=== PATIENT | male | born 1995 | race African-American/Black ===

== ENCOUNTER 2017-01-06 14:38 | Emergency (ER) | payer SELFPAY ==
[~2017-01-06] VITALS: Ht 188 cm; Wt 81.0 kg
[2017-01-06 14:40] VITALS: BP 123/95; PULSE 72; RESP 12; TEMP 98.1; O2SAT 98
--- NOTE | 2017-01-06 15:24 | PD ---
HPI Chief Complaint: Pain: Acute or Chronic Time Seen by Provider: 15:23 Travel History International Travel<30 days: No Contact w/Intl Traveler<30days: No Traveled to known affect area: No History of Present Illness HPI 20-year-old male presents emergency Department with complaint of right lower rib cage pain and right hip pain 2 weeks after falling on his right side while playing football. He thought the pain would go away and it hasn't. He denies shortness of breath, hemoptysis, hematemesis, hematochezia, hematuria. Denies fever, chills, nausea, vomiting. Rib cage pain is worse with deep breathing. Right hip pain is worse with palpation. He has not taken any medications or tried any treatments to alleviate his symptoms. No known allergies. Denies significant past medical history. No other modifying factors or associated signs and symptoms. PFSH Past Medical History Medical History: Denies Significant Hx Social History Tobacco Use: No Allergies-Medications (Allergen,Severity, Reaction): Coded Allergies: No Known Allergies (Unverified , 01/06/17) Reported Meds & Prescriptions Reported Meds & Active Scripts Active Ibuprofen 800 Mg Tab 800 Mg PO Q6HR PRN Review of Systems Except as stated in HPI: all other systems reviewed are Neg Physical Exam Narrative GENERAL: Well-nourished, well-developed male patient, in no acute distress SKIN: Warm and dry. HEAD: Atraumatic. Normocephalic. EYES: Pupils equal and round. No scleral icterus. No injection or drainage. ENT: Mucosa pink and moist. Airway patent. NECK: Trachea midline. CHEST: Reproducible tenderness to the right lateral lower rib cage; without deformity or crepitance. No retractions or use of accessory muscles. CARDIOVASCULAR: Regular rate and rhythm. No murmur appreciated. RESPIRATORY: No accessory muscle use. Lungs sounds clear and equal bilaterally. GASTROINTESTINAL: Abdomen soft, non-tender, nondistended. Positive bowel sounds. No hepato-splenomegaly, or palpable masses. No guarding. MUSCULOSKELETAL: Right hip with full range of motion; no erythema, edema, ecchymosis; without tenderness on abduction; with tenderness on palpation; no obvious deformity; no leg length discrepancy. Right lower extremity is supple and non-tense with 2+ pedal pulse and sensory intact and without erythema or edema. Ambulatory at bedside with normal gait. NEUROLOGICAL: Awake and alert. Oriented 3. No obvious cranial nerve deficits. Motor grossly within normal limits. Normal speech. PSYCHIATRIC: Appropriate mood and affect; insight and judgment normal. Data Data Last Documented VS Vital Signs Date Time Temp Pulse Resp B/P Pulse Ox O2 Delivery O2 Flow Rate FiO2 01/06/17 16:15 88 18 01/06/17 14:40 98.1 123/95 98 Room Air Orders Ribs, Uni (W/Exp Cxr-Min 3vw) (01/06/17 15:37) Hip, Uni(Ap&Lat) Wo Ap Pelvis (01/06/17 ) Ibuprofen (Motrin) (01/06/17 15:45) MDM Medical Decision Making Medical Screen Exam Complete: Yes Emergency Medical Condition: Yes Medical Record Reviewed: Yes Differential Diagnosis Rib contusion, rib fracture, hip contusion, hip fracture Narrative Course 21-year-old male with right rib and right hip injury. Ibuprofen ordered. 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 Right hip x-ray ordered. 1624: Right rib with x-ray chest x-ray concludes No displaced rib fracture identified; No pleural effusion or pneumothorax is evident. Right hip x-ray concludes Normal examination. Ibuprofen prescribed for home. Patient is medically cleared and stable for discharge. Discussed reasons to return to the emergency department. Instructed patient to follow up with primary care provider. Patient agrees with treatment plan. The patients vital signs are stable and the patient is stable for outpatient follow-up and treatment. Patient discharged home, stable and in no acute distress. Diagnosis Primary Impression: Contusion of rib on right side Qualified Code: S20.211A - Contusion of rib on right side, initial encounter Additional Impression: Contusion of right hip Qualified Code: S70.01XA - Contusion of right hip, initial encounter Referrals: Primary Care Physician Patient Instructions: General Instructions, Hip Contusion (ED), Rib Contusion ( ED) Departure Forms: School Release, Return to School Date: Jan 07, 2017 Tests/Procedures, Work Release Additional Instructions: Ibuprofen Or Tylenol as directed and as needed for pain and inflammation Ice to the affected areas to reduce pain and inflammation Avoid aggravating activity; increase activity as tolerated Follow-up with primary care provider Return to the emergency department immediately with worsening of symptoms Med/Other Pt SpecificInfo: Prescription(s) given Scripts Ibuprofen 800 Mg [id number] Mg PO Q6HR PRN (PAIN) #30 TAB Ref 0 Prov:Summer Mccollum 01/06/17 Disposition: 01 DISCHARGE HOME Condition: Stable Summer Mccollum Jan 06, 2017 15:23
[2017-01-06] MEDS ORDERED: IBUPROFEN 800 MG TAB PO ONE (15:45)
--- NOTE | 2017-01-06 16:20 | RADRPT ---
EXAM DATE/TIME: 01/06/2017 16:10 [facility] COMPARISON: RIBS RIGHT(W PA CXR MIN 3VWS), January 06, 2017, 16:05. INDICATIONS : Right hip pain after fall two weeks ago. MEDICAL HISTORY : None. SURGICAL HISTORY : None. ENCOUNTER: Initial ACUITY: 2 weeks PAIN SCORE: 5/10 LOCATION: Right hip. FINDINGS: A two view examination of the right hip was performed. The primary and secondary trabecular pattern of the femoral neck is intact. The hip joint is of normal width without significant sclerosis or bon y hypertrophy. The acetabulum is grossly intact. CONCLUSION: 1. Normal examination. Ranjeet Rowley MD on January 06, 2017 at 16:11 Board Certified Radiologist. This report was verified electronically.
--- NOTE | 2017-01-06 16:21 | RADRPT ---
EXAM DATE/TIME: 01/06/2017 16:05 [facility] COMPARISON: No previous studies available for comparison. INDICATIONS : Right sided rib pain after fall two weeks ago. MEDICAL HISTORY : None. SURGICAL HISTORY : None. ENCOUNTER: Initial ACUITY: 2 weeks PAIN SCORE: 5/10 LOCATION: Right ribs. FINDINGS: Multiple views of the right ribs were performed. There is no evidence of displaced fracture. No delonte tructive lesions or areas of periosteal thickening are seen. Expiratory view of the chest is negativ e for pneumothorax. The mediastinal structures are midline. CONCLUSION: 1. No displaced rib fracture identified. 2. No pleural effusion or pneumothorax is evident. Ranjeet Rowley MD on January 06, 2017 at 16:19 Board Certified Radiologist. This report was verified electronically.
[2017-01-06] MEDS ORDERED: IBUP800T23 PO (16:28)
== END 2017-01-06 17:01 | disposition home or self-care (01) ==
LOC: NEPB 14:38
DX: S20.211A Contusion of right front wall of thorax, initial encounter (principal); S70.01XA Contusion of right hip, initial encounter; W18.30XA Fall on same level, unspecified, initial encounter; Y93.61 Activity, american tackle football; Y99.8 Other external cause status
CPT/HCPCS: 71101; 73502; 99283